=== PATIENT | male | born 1945 | race Two or more races ===

== ENCOUNTER 2017-01-08 07:49 | Inpatient (IN) | payer OTHER ==
--- NOTE | 2017-01-08 07:52 | PDOC ---
History of Present Illness - General Stated Complaint: FEVER Time Seen by Provider: 01/08/17 07:52 History Source: Other (Aide from alf) Exam Limitations: Other (nonverbal at baseline) - History of Present Illness Initial Comments: 71 yo M history MR presents with fever x1 day. He is unable to offer any history , but as per aide at bedside, he has had fever today, appeared weak and not himself. He vomited x1 this morning. Past History - Past Medical History Allergies/Adverse Reactions: Allergies Allergy/AdvReac Type Severity Reaction Status Date / Time No Known Allergies Allergy Verified 01/08/17 07:57 Home Medications: Ambulatory Orders Amlodipine Besylate 5 mg PO DAILY 07/17/16 Ascorbic Acid [Vitamin C] 1,000 mg PO DAILY 07/17/16 Aspirin [Ecotrin] 81 mg PO DAILY 07/17/16 Cholecalciferol (Vitamin D3) [Vitamin D3 -] 1,000 unit PO DAILY 07/17/16 Lisinopril [Prinivil] 20 mg PO DAILY 07/17/16 Multivitamin,Ther and Minerals [Vitamin and Minerals] 1 each PO DAILY 07/17/16 Omeprazole 20 mg PO DAILY 07/17/16 Sennosides [Senna] 2 tab PO HS PRN 07/17/16 Prune Juice 4 oz DAILY 01/08/17 Sodium Fluoride [Denta 5000 Plus] 51 gm DT HS 01/08/17 Cardiac Disorders: Yes GI Disorders: Yes HTN: Yes Seizures: Yes - Immunization History Immunization Up to Date: No - Psycho/Social/Smoking Cessation Hx Anxiety: No Suicidal Ideation: No Smoking Status: No Smoking History: Unknown if ever smoked Have you smoked in the past 12 months: No Number of Cigarettes Smoked Daily: 0 Hx Alcohol Use: No Drug/Substance Use Hx: No Substance Use Type: None Review of Systems - Review of Systems Able to Perform ROS?: No (nonverbal) *Physical Exam - Physical Exam Comments: GENERAL: Awake, alert, in no acute distress HEAD: No signs of trauma EYES: PERRLA, EOMI, sclera anicteric, conjunctiva clear ENT: Auricles normal inspection, hearing grossly normal, nares patent, oropharynx clear without exudates. Dry mucosa NECK: Normal ROM, supple, no lymphadenopathy, JVD, or masses LUNGS: Scattered rhonchi. Good air entry B/L. HEART: Tachycardic with regular rhythm, normal S1 and S2, no murmurs, rubs or gallops ABDOMEN: Soft, normoactive bowel sounds. No guarding, no rebound. No masses EXTREMITIES: Normal range of motion, no edema. No clubbing or cyanosis. No cords , erythema, or tenderness NEUROLOGICAL: CN grossly intact. Moving all extremities, alert. Exam limited by severe MR. SKIN: Warm, Dry, normal turgor, no rashes or lesions noted. Heart Score/ECG Review - ECG Impressions Comment:: EKG read 08:34- Sinus tach 122 bpm, RBBB, inv T V2-3. ED Treatment Course - LABORATORY CBC & Chemistry Diagram: 01/08/17 08:25 01/08/17 08:25 Medical Decision Making - Medical Decision Making Pt unable to offer any history, but found to have fever and tachycardia. Labs sent- found to have hyponatremia, elevated lactate. CXR shows LLL pna. Will send urine antigens for pna, as he has hyponatremia (although this may be chronic), and comes from a facility. Will treat empirically with rocephin and azithro. *DC/Admit/Observation/Transfer Diagnosis at time of Disposition: Hyponatremia Pneumonia Qualifiers: Pneumonia type: due to unspecified organism Laterality: left Lung location: lower lobe of lung Qualified Code(s): J18.1 - Lobar pneumonia, unspecified organism - Discharge Dispostion Condition at time of disposition: Stable Admit: Yes
[2017-01-08 08:07] VITALS: BMI 22.9
[2017-01-08] MEDS ORDERED: SODIUM CHLORIDE 1,000 ML IV STA (08:11)
[2017-01-08] MEDS ORDERED: ACETAMINOPHEN 325 MG TABLET (FP) PO ONE (08:11)
[2017-01-08] MEDS ORDERED: ACETAMINOPHEN 325 MG TABLET (FP) ONE (08:45)
[2017-01-08 09:03] LABS: ALBUMIN 3.7 g/dl (3.5-5.0); ALK PHOS 82 U/L (32-92); ANION GAP 10 (8-16); BILIRUBIN,TOTAL 0.9 mg/dl (0.2-1.0); CALCIUM 8.8 mg/dl (8.4-10.2); CO2 22 mmol/L (22-28); CREATININE 0.7 mg/dl (0.6-1.3); GLUCOSE,RANDOM 150 mg/dl (74-106); SGOT/AST 21 U/L (10-42); SGPT/ALT 14 U/L (10-40); TOT PROT 6.8 g/dl (6.4-8.3)
[2017-01-08 09:04] LABS: PH,URINE 6.5 (4.5-8); URINE APPEARANCE Clear; URINE BILIRUBIN Negative (NEGATIVE); URINE GLUCOSE (UA) Negative (NEGATIVE); URINE KETONE Negative (NEGATIVE); URINE LEUK ESTERASE Negative (NEGATIVE); URINE NITRITE Negative (NEGATIVE); URINE PROTEIN Negative (NEGATIVE); URINE UROBILINOGEN 1.0 E.U/dl (0.2-1.0)
[2017-01-08 09:21] LABS: URINE BLOOD TRACE (NEGATIVE); URINE COLOR YELLOW
[2017-01-08 09:26] LABS: BASOPHIL 0.1 % (0-2.0); EOSINOPHIL 0.1 % (0-4.5); MCH 31.3 pg (25.7-33.7); MCHC 33.3 g/dl (32.0-35.9); MEAN CELL VOLUME 94.1 fl (80-96); MEAN PLT VOLUME 7.9 fl (7.5-11.1); NEUTROPHILS 89.8 % (42.8-82.8); PLATELET COUNT 248 K/MM3 (134-434); RDW 13.2 % (11.9-15.9); WHITE BLOOD COUNT 13.2 K/mm3 (4.0-10.0)
[2017-01-08 10:11] LABS: URINE WBC 0-3 (3-5)
[2017-01-08] MEDS ORDERED: AZITHROMYCIN IVPB 500 MG in DEXTROSE 5%-WATER - 250 ML IVPB ONE (10:13)
[2017-01-08] MEDS ORDERED: CEFTRIAXONE 1 GM in DEXTROSE 5%-WATER - 50 ML IVPB ONE (10:13)
[2017-01-08] MEDS ORDERED: cefTRIAXone SODIUM 1 GM VIAL ONE (10:20)
[2017-01-08] MEDS ORDERED: AZITHROMYCIN 500 MG VIAL IVPB ONE (10:21)
--- NOTE | 2017-01-08 11:26 | EKG ---
Test Reason : Blood Pressure : / mmHG Vent. Rate : 122 BPM Atrial Rate : 122 BPM P-R Int : 154 ms QRS Dur : 128 ms QT Int : 318 ms P-R-T Axes : 061 057 010 degrees QTc Int : 453 ms SINUS TACHYCARDIA POSSIBLE LEFT ATRIAL ENLARGEMENT RIGHT BUNDLE BRANCH BLOCK ST-T wave abnormalities in V3-4, consider ischemia ABNORMAL ECG NO PREVIOUS ECGS AVAILABLE Confirmed by HELEN CASTRO MD ([id number]) on 01/08/2017 11:25:56 AM Referred By: MD MEYERS Confirmed By:HELEN CASTRO MD
[2017-01-08 11:38] LABS: URINE CREATININE 92.8 mg/dL (20-370)
[2017-01-08] MEDS ORDERED: SENNOSIDES 8.6MG TABLET (FP) PO PRN (12:17)
--- NOTE | 2017-01-08 12:17 | HP ---
CHIEF COMPLAINT: fever and malaise PCP: Dr Godwin HISTORY OF PRESENT ILLNESS: patient is a 71-year-old non-verbal male, past medical history of profound mental retardation, diverticulitis, hypertension, hiatal hernia, mitral valve prolapse, and GERD. patient is unable to provide any history. All history and present illness obtained from medical record accompanied with patient. He presents with fever for the past 24 hours and malaise MAXIMUM TEMPERATURE of 101.0 as a result he was referred to the emergency department for further evaluation ER course was notable for: (1) chest x-ray, cardiomegly, left lower infilitrate (2) tmax 100.6 HR 125 (3) WBC 13.2 lactic acid 2.6 Recent Travel: none PAST MEDICAL HISTORY: hypertension, GERD, profound mental retardation, hiatal hernia, mvp PAST SURGICAL HISTORY: none Social History: [facility] Smoking: none Alcohol: none Drugs: none Family History: ]unknown Allergies No Known Allergies Allergy (Verified 01/08/17 07:57) HOME MEDICATIONS: Home Medications Medication Instructions Recorded Amlodipine Besylate 5 mg PO DAILY 07/17/16 Ascorbic Acid [Vitamin C] 1,000 mg PO DAILY 07/17/16 Aspirin [Ecotrin] 81 mg PO DAILY 07/17/16 Cholecalciferol (Vitamin D3) 1,000 unit PO DAILY 07/17/16 [Vitamin D3 -] Lisinopril [Prinivil] 20 mg PO DAILY 07/17/16 Multivitamin,Ther and Minerals 1 each PO DAILY 07/17/16 [Vitamin and Minerals] Omeprazole 20 mg PO DAILY 07/17/16 Sennosides [Senna] 2 tab PO HS PRN 07/17/16 Prune Juice 4 oz DAILY 01/08/17 Sodium Fluoride [Denta 5000 Plus] 51 gm DT HS 01/08/17 REVIEW OF SYSTEMS CONSTITUTIONAL: Present: fever, malaise Absent: chills, diaphoresis, generalized weakness, , loss of appetite, weight change HEENT: Absent: rhinorrhea, nasal congestion, throat pain, throat swelling, difficulty swallowing, mouth swelling, ear pain, eye pain, visual changes CARDIOVASCULAR: Absent: chest pain, syncope, palpitations, irregular heart rate, lightheadedness , peripheral edema RESPIRATORY: Absent: cough, shortness of breath, dyspnea with exertion, orthopnea, wheezing, stridor, hemoptysis GASTROINTESTINAL: Absent: abdominal pain, abdominal distension, nausea, vomiting, diarrhea, constipation, melena, hematochezia GENITOURINARY: Absent: dysuria, frequency, urgency, hesitancy, hematuria, flank pain, genital pain MUSCULOSKELETAL: Absent: myalgia, arthralgia, joint swelling, back pain, neck pain SKIN: Absent: rash, itching, pallor HEMATOLOGIC/IMMUNOLOGIC: Absent: easy bleeding, easy bruising, lymphadenopathy, frequent infections ENDOCRINE: Absent: unexplained weight gain, unexplained weight loss, heat intolerance, cold intolerance NEUROLOGIC: Absent: headache, focal weakness or paresthesias, dizziness, unsteady gait, seizure, mental status changes, bladder or bowel incontinence PSYCHIATRIC: Absent: anxiety, depression, suicidal or homicidal ideation, hallucinations. PHYSICAL EXAMINATION Vital Signs - 24 hr 01/08/17 11:19 Temperature 99 F Pulse Rate [ 99 H Apical] Respiratory 18 Rate Blood Pressure 132/95 [Arm] O2 Sat by Pulse 93 L Oximetry (%) GENERAL: Awake, alert, and in no acute distress HEAD: Normal with no signs of trauma. EYES: Pupils equal, round and reactive to light, extraocular movements intact, sclera anicteric, conjunctiva clear. No lid lag. EARS, NOSE, THROAT: Ears normal, nares patent, oropharynx clear without exudates. Moist mucous membranes. NECK: Normal range of motion, supple without lymphadenopathy, JVD, or masses. LUNGS: Breath sounds equal, crackles to the left lower lobe, clear to apexes, No wheezes. No accessory muscle use. HEART: Regular rate and rhythm, normal S1 and S2, 2/6 systolic murmur, rub or gallop. ABDOMEN: Soft, nontender, not distended, normoactive bowel sounds, no guarding, no rebound, no masses. No hepatomegaly or splenomegaly. MUSCULOSKELETAL: Normal range of motion at all joints. No bony deformities or tenderness. No CVA tenderness. UPPER EXTREMITIES: 2+ pulses, warm, well-perfused. No cyanosis. No clubbing. No peripheral edema. LOWER EXTREMITIES: 2+ pulses, warm, well-perfused. No calf tenderness. No peripheral edema. NEUROLOGICAL: Cranial nerves II-XII intact. Normal speech. Normal gait. PSYCHIATRIC: Cooperative. Good eye contact. Appropriate mood and affect. SKIN: Warm, dry, normal turgor, no rashes or lesions noted, normal capillary refill. ASSESSMENT/PLAN: 1) pulm community acquired pna - chest xray left lower infiltrate - continue zithromax and rocephin - start duobebs q6h standing - keep sp02 above 92%, with supplemental O2 - pending ct of chest ? congestive changes noted on cxr - appreciate pulmonary input 2) card hypertension - continue lisiniopril and amolodipne - B/P at goal cardiomegly & congestive changes noted on xray, pmh has a history of mvp, will order echo to acess LV function 3) GERD - d/c PPI due to hyponatremia start zantac 4) sepsis - likely secondary to PNA - monitor wbc and fever curve - lactic acid slightly elevated repeat lactic acid after NS bolus f/e/n hyponatremia - likely secondary from dehydration, repeat at 1300 - puree diet - replete lytes prn ppx - zantac - lovenox - oob - scd - pt dispo: requires inpatient care Problem List - Problem (1) Hyponatremia Code(s): E87.1 - HYPO-OSMOLALITY AND HYPONATREMIA (2) Pneumonia Code(s): J18.9 - PNEUMONIA, UNSPECIFIED ORGANISM Qualifiers: Pneumonia type: due to unspecified organism Laterality: left Lung location: lower lobe of lung Qualified Code(s): J18.1 - Lobar pneumonia, unspecified organism (3) Hypertension Code(s): I10 - ESSENTIAL (PRIMARY) HYPERTENSION (4) Sepsis Code(s): A41.9 - SEPSIS, UNSPECIFIED ORGANISM Visit type - Emergency Visit Emergency Visit: Yes ED Registration Date: 01/08/17 Care time: The patient presented to the Emergency Department on the above date and was hospitalized for further evaluation of their emergent condition. - New Patient This patient is new to me today: Yes Date on this admission: 01/08/17 - Critical Care Critical Care patient: No
[2017-01-08] MEDS ORDERED: SODIUM CHLORIDE 1,000 ML IV SCH (12:30)
[2017-01-08] MEDS ORDERED: ALBUTEROL SO4 2.5/IPRATROPIUM 0.5 INH SOL 3 ML VIAL.NEB. NEB PRN (12:44)
[2017-01-08 13:29] LABS: ANION GAP 6 (8-16); CALCIUM 8.3 mg/dl (8.4-10.2); CO2 24 mmol/L (22-28); CREATININE 0.6 mg/dl (0.6-1.3); GLUCOSE,RANDOM 123 mg/dl (74-106); MAGNESIUM 1.8 mg/dL (1.8-2.4); PHOSPHOROUS 2.3 mg/dl (2.5-4.6)
--- NOTE | 2017-01-08 18:15 | CON.PULM ---
Consult Consult Specialty:: PULMONARY Referred by:: MARYSOL - History of Present Illness Chief Complaint: nonverbal History of Present Illness: 71 yo M history MR presents with fever x1 day. He is unable to offer any history , but as per aide at bedside, he has had fever today, appeared weak and not himself. He vomited x1 this morning. - History Source History Provided By: Medical Record, Caregiver Limitations to Obtaining History: Clinical Condition - Past Medical History Cardio/Vascular: Yes: HTN Gastrointestinal: Yes: GERD - Alcohol/Substance Use Hx Alcohol Use: No - Smoking History Smoking history: Unknown if ever smoked Have you smoked in the past 12 months: No Aproximately how many cigarettes per day: 0 - Social History Usual Living Arrangement: [facility]isted [facility] History of Recent Travel: No Home Medications - Allergies Allergies/Adverse Reactions: Allergies Allergy/AdvReac Type Severity Reaction Status Date / Time No Known Allergies Allergy Verified 01/08/17 07:57 - Home Medications Home Medications: Ambulatory Orders Amlodipine Besylate 5 mg PO DAILY 07/17/16 Ascorbic Acid [Vitamin C] 1,000 mg PO DAILY 07/17/16 Aspirin [Ecotrin] 81 mg PO DAILY 07/17/16 Cholecalciferol (Vitamin D3) [Vitamin D3 -] 1,000 unit PO DAILY 07/17/16 Lisinopril [Prinivil] 20 mg PO DAILY 07/17/16 Multivitamin,Ther and Minerals [Vitamin and Minerals] 1 each PO DAILY 07/17/16 Omeprazole 20 mg PO DAILY 07/17/16 Sennosides [Senna] 2 tab PO HS PRN 07/17/16 Prune Juice 4 oz DAILY 01/08/17 Sodium Fluoride [Denta 5000 Plus] 51 gm DT HS 01/08/17 Family Disease History - Family Disease History Family History: Unable to Obtain Review of Systems Unable to obtain ROS, reason: UNABLE Physical Exam Vital Sings: Vital Signs Temperature 99.9 F H 01/08/17 12:22 Pulse Rate 111 H 01/08/17 12:22 Respiratory Rate 19 01/08/17 12:22 Blood Pressure 144/98 01/08/17 12:22 O2 Sat by Pulse Oximetry (%) 94 L 01/08/17 12:22 Constitutional: Yes: Calm Eyes: Yes: EOM Intact HENT: Yes: Normocephalic Neck: Yes: Trachea Midline Cardiovascular: Yes: Regular Rate and Rhythm Respiratory: Yes: Rales (LEFT BASE) Gastrointestinal: Yes: Normal Bowel Sounds Edema: No Labs: CBC, BMP 01/08/17 13:00 REST REVIEWED Imaging - Results Chest X-ray: Image Reviewed Cat Scan: Image Reviewed Problem List - Problems (1) Hypertension Code(s): I10 - ESSENTIAL (PRIMARY) HYPERTENSION (2) Hyponatremia Code(s): E87.1 - HYPO-OSMOLALITY AND HYPONATREMIA (3) Pneumonia Code(s): J18.9 - PNEUMONIA, UNSPECIFIED ORGANISM Qualifiers: Pneumonia type: due to unspecified organism Laterality: left Lung location: lower lobe of lung Qualified Code(s): J18.1 - Lobar pneumonia, unspecified organism (4) Mental retardation Code(s): F79 - UNSPECIFIED INTELLECTUAL DISABILITIES Assessment/Plan AGREE WITH O2 SUPPLEMENTATION PANCULTURE IV ABS BRONCHODILATORS NEEDED CORRECT NA DVT/PUD PROPHYLAXSIS WILL FOLLOW THANK YOU Latonia DESOUZA MD
[2017-01-08] MEDS ORDERED: SODIUM FLUORIDE DT SCH (22:00)
[2017-01-09] MEDS ORDERED: PIPERACILLIN/TAZOB 3.375 GM 50 ML IVPB ONE (05:04)
[2017-01-09] MEDS: AZITHROMYCIN IVPB 250 MG in DEXTROSE 5%-WATER - 250 ML IVPB SCH (05:35)
[2017-01-09 08:04] LABS: BASOPHIL 2.1 % (0-2.0); EOSINOPHIL 4.3 % (0-4.5); MCH 31.6 pg (25.7-33.7); MCHC 33.5 g/dl (32.0-35.9); MEAN CELL VOLUME 94.3 fl (80-96); MEAN PLT VOLUME 7.8 fl (7.5-11.1); NEUTROPHILS 71.9 % (42.8-82.8); PLATELET COUNT 244 K/MM3 (134-434); RDW 12.7 % (11.9-15.9); WHITE BLOOD COUNT 10.3 K/mm3 (4.0-10.8)
[2017-01-09] MEDS ORDERED: LOPERAMIDE HCL 2 MG CAPSULE PO PRN (08:23)
[2017-01-09 08:54] LABS: ALBUMIN 3.2 g/dl (3.5-5.0); ALK PHOS 69 U/L (32-92); ANION GAP 8 (8-16); BILIRUBIN,TOTAL 0.7 mg/dl (0.2-1.0); CALCIUM 8.7 mg/dl (8.4-10.2); CO2 24 mmol/L (22-28); CREATININE 0.6 mg/dl (0.6-1.3); GLUCOSE,RANDOM 113 mg/dl (74-106); MAGNESIUM 1.9 mg/dL (1.8-2.4); PHOSPHOROUS 1.9 mg/dl (2.5-4.6); SGOT/AST 23 U/L (10-42); SGPT/ALT 18 U/L (10-40); TOT PROT 6.1 g/dl (6.4-8.3)
--- NOTE | 2017-01-09 09:15 | PN ---
Progress Note (short form) - Note Progress Note: Pulmonary Patient is down for echo. Latonia House MD Problem List - Problems (1) Hypertension Code(s): I10 - ESSENTIAL (PRIMARY) HYPERTENSION (2) Hyponatremia Code(s): E87.1 - HYPO-OSMOLALITY AND HYPONATREMIA (3) Pneumonia Code(s): J18.9 - PNEUMONIA, UNSPECIFIED ORGANISM Qualifiers: Pneumonia type: due to unspecified organism Laterality: left Lung location: lower lobe of lung Qualified Code(s): J18.1 - Lobar pneumonia, unspecified organism (4) Mental retardation Code(s): F79 - UNSPECIFIED INTELLECTUAL DISABILITIES
[2017-01-09] MEDS: LISINOPRIL 20 MG TABLET (FP) PO SCH (10:00)
[2017-01-09] MEDS: ASCORBIC ACID 500 MG TABLET (FP) PO SCH (10:00)
[2017-01-09] MEDS ORDERED: CHOLECALCIFEROL (VITAMIN D3) 400 UNIT TABLET (FP) PO SCH (10:00)
[2017-01-09] MEDS: RANITIDINE HCL 150 MG TABLET (FP) PO SCH (10:00)
[2017-01-09] MEDS: MULTIVITAMINS THER W-MINERALS COMBO TABLET (FP) PO SCH (10:00)
[2017-01-09] MEDS ORDERED: PATIENT'S OWN MEDICATION (NON-FORMULARY) (Multivitamin,Ther And Minerals [Vitamin And Mine PO SCH (10:00)
[2017-01-09] MEDS ORDERED: ASCORBIC ACID 1000 MG PO SCH (10:00)
[2017-01-09] MEDS: cefTRIAXone 1 GM/50 ML BAG (PRE-DOCKED) IVPB SCH (10:00)
[2017-01-09] MEDS: amLODIPine BESYLATE 5 MG TABLET (FP) PO SCH (10:10)
[2017-01-09] MEDS: ENOXAPARIN NA (PORCINE) 40 MG/0.4 ML DISP.SYRIN SQ SCH (10:10)
[2017-01-09] MEDS: ASPIRIN COATED 81 MG TABLET.EC PO SCH (10:10)
[2017-01-09] MEDS: CHOLECALCIFEROL (VITAMIN D3) 1,000 UNIT TABLET (FP) PO SCH (10:15)
[2017-01-09] MEDS: LACTOBACILLUS ACIDOPHILUS 1 EACH TAB (FP) PO SCH (10:35)
--- NOTE | 2017-01-09 10:38 | PN ---
Physical Exam: SUBJECTIVE: Patient seen and examined, patient is nonverbal, appears comfortable OBJECTIVE: patient is a 71-year-old non-verbal male, past medical history of profound mental retardation, diverticulitis, hypertension, hiatal hernia, mitral valve prolapse, and GERD. patient was admitted from the emergency department for sepsis due to PNA Vital Signs Period Temp Pulse Resp BP Sys/Arvizu Pulse Ox Last 24 Hr 99 F-99.9 F 96-111 18-20 122-144/75-98 92-96 GENERAL: The patient is awake, alert, and fully oriented, in no acute distress. HEAD: Normal with no signs of trauma. EYES: PERRL, extraocular movements intact, sclera anicteric, conjunctiva clear. No ptosis. ENT: Ears normal, nares patent, oropharynx clear without exudates, moist mucous membranes. NECK: Trachea midline, full range of motion, supple. LUNGS: Breath sounds equal, clear to auscultation bilaterally, crackles to bilateral bases L>R , no wheezes, , no accessory muscle use. HEART: Regular rate and rhythm, S1, S2 without murmur, rub or gallop. ABDOMEN: Soft, nontender, nondistended, normoactive bowel sounds, no guarding, no rebound, no hepatosplenomegaly, no masses. EXTREMITIES: 2+ pulses, warm, well-perfused, no edema. NEUROLOGICAL: Cranial nerves II through XII grossly intact. Normal speech, gait not observed. PSYCH: Normal mood, normal affect. SKIN: Warm, dry, normal turgor, no rashes or lesions noted Laboratory Results - last 24 hr CBC WBC 10.3 K/mm3 (4.0-10.8) D 01/09/17 07:43 RBC 4.40 M/mm3 (4.00-5.60) 01/09/17 07:43 Hgb 13.9 GM/dl (11.7-16.9) 01/09/17 07:43 Hct 41.5 % (35.4-49) 01/09/17 07:43 MCV 94.3 fl (80-96) 01/09/17 07:43 MCHC 33.5 g/dl (32.0-35.9) 01/09/17 07:43 RDW 12.7 % (11.9-15.9) 01/09/17 07:43 Plt Count 244 K/MM3 (134-434) 01/09/17 07:43 MPV 7.8 fl (7.5-11.1) 01/09/17 07:43 Neutrophils % 71.9 % (42.8-82.8) D 01/09/17 07:43 Lymphocytes % 17.0 % (8-40) D 01/09/17 07:43 Monocytes % 4.7 % (3.8-10.2) 01/09/17 07:43 Eosinophils % 4.3 % (0-4.5) 01/09/17 07:43 Basophils % 2.1 % (0-2.0) H D 01/09/17 07:43 CMP Sodium 137 mmol/L (136-145) 01/09/17 07:43 Potassium 3.9 mmol/L (3.5-5.1) 01/09/17 07:43 Chloride 105 mmol/L (98-107) 01/09/17 07:43 Carbon Dioxide 24 mmol/L (22-28) 01/09/17 07:43 Anion Gap 8 (8-16) 01/09/17 07:43 BUN 13 mg/dl (7-18) 01/09/17 07:43 Creatinine 0.6 mg/dl (0.6-1.3) 01/09/17 07:43 Creat Clearance w eGFR > 60 (>60) 01/09/17 07:43 Random Glucose 113 mg/dl (74-106) H 01/09/17 07:43 Lactic Acid 1.3 mmol/L (0.4-2.0) 01/09/17 07:43 Calcium 8.7 mg/dl (8.4-10.2) 01/09/17 07:43 Phosphorus 1.9 mg/dl (2.5-4.6) L 01/09/17 07:43 Magnesium 1.9 mg/dL (1.8-2.4) 01/09/17 07:43 Total Bilirubin 0.7 mg/dl (0.2-1.0) D 01/09/17 07:43 AST 23 U/L (10-42) 01/09/17 07:43 ALT 18 U/L (10-40) D 01/09/17 07:43 Alkaline Phosphatase 69 U/L (32-92) 01/09/17 07:43 Total Protein 6.1 g/dl (6.4-8.3) L 01/09/17 07:43 Albumin 3.2 g/dl (3.5-5.0) L 01/09/17 07:43 Active Medications Generic Name Dose Route Start Last Admin Trade Name Freq PRN Reason Stop Dose Admin Albuterol/Ipratropium 1 amp 01/09/17 10:45 Duoneb - NEB Q6H [facility] Amlodipine Besylate 5 mg 01/09/17 10:00 Norvasc - PO DAILY [facility] Ascorbic Acid 1,000 mg 01/09/17 10:00 Vitamin C - PO DAILY [facility] Aspirin 81 mg 01/09/17 10:00 Ecotrin - PO DAILY [facility] Ceftriaxone Sodium 1 gm 01/09/17 10:00 Rocephin 1gm Ivpb (Pre-Docked) IVPB DAILY [facility] Protocol Cholecalciferol 1,000 unit 01/09/17 10:00 Vitamin D3 - PO DAILY [facility] Enoxaparin Sodium 40 mg 01/09/17 10:00 Lovenox - SQ DAILY [facility] Azithromycin 250 mg/ Dextrose 250 mls @ 250 mls/hr 01/09/17 06:00 01/09/17 05: 35 IVPB 01/13/17 06:00 250 mls/hr DAILY@0600 [facility] Administration Lactobacillus Acidophilus 1 tab 01/09/17 10:45 Bacid - PO DAILY [facility] Lisinopril 20 mg 01/09/17 10:00 Prinivil PO DAILY [facility] Loperamide HCl 2 mg 01/09/17 08:23 Imodium - PO Q8H PRN DIARRHEA Multivitamins/Minerals 1 each 01/09/17 10:00 Theragran-M PO DAILY [facility] Non-Formulary Medication 51 gm 01/08/17 22:00 Sodium Fluoride [Denta 5000 Plus] DT HS [facility] Ranitidine HCl 150 mg 01/09/17 10:00 Zantac - PO DAILY [facility] Senna 2 tab 01/08/17 12:17 Senna - PO HS PRN CONSTIPATION Microbiology 01/08/17 08:55 Urine - Urine Clean Catch Urine Culture - Final NO GROWTH OBTAINED 01/08/17 08:30 Blood - Peripheral Venous Blood Culture - Preliminary NO GROWTH OBTAINED AFTER 24 HOURS, INCUBATION TO CONTINUE FOR 4 DAYS. 01/08/17 08:25 Blood - Peripheral Venous Blood Culture - Preliminary NO GROWTH OBTAINED AFTER 24 HOURS, INCUBATION TO CONTINUE FOR 4 DAYS. 01/08/17 10:34 Urine For Antigen Detection Legionella Antigen - Final, negative 01/08/17 10:34 Urine For Antigen Detection Streptococcus pneumoniae Antigen (M - Final, negative ASSESSMENT/PLAN: 1) pulm community acquired pna - chest xray left lower infiltrate-->ct of chest-left lower infilitrate, fluid distenstion in esophagus - continue zithromax and rocephin - continue duonebs q6h standing - keep sp02 above 92%, with supplemental O2 - pulmonary consulted and following input 2) card hypertension - continue lisiniopril and amolodipne - B/P at goal - echo lv wnl, no pericardial effusion 3) GERD - continue zantac 4) sepsis - likely secondary to PNA - leukocytosis trending downward, low grade temp noted - lactic acid wnll f/e/n hyponatremia - serum sodium trending upward after iv hydration l - puree diet--> appreciate speech and swallow eval, large hiatal hernia noted ct scan w/fluid distention in the esophagus, ? aspiration -replete phos ppx - zantac - lovenox - oob - scd - pt dispo: requires inpatient care Problem List - Problems (1) Hyponatremia Code(s): E87.1 - HYPO-OSMOLALITY AND HYPONATREMIA (2) Pneumonia Code(s): J18.9 - PNEUMONIA, UNSPECIFIED ORGANISM Qualifiers: Pneumonia type: due to unspecified organism Laterality: left Lung location: lower lobe of lung Qualified Code(s): J18.1 - Lobar pneumonia, unspecified organism (3) Hypertension Code(s): I10 - ESSENTIAL (PRIMARY) HYPERTENSION (4) Sepsis Code(s): A41.9 - SEPSIS, UNSPECIFIED ORGANISM Visit type - Emergency Visit Emergency Visit: Yes ED Registration Date: 01/08/17 Care time: The patient presented to the Emergency Department on the above date and was hospitalized for further evaluation of their emergent condition. - New Patient This patient is new to me today: No - Critical Care Critical Care patient: No - Discharge Referral Referred to [facility] No
[2017-01-09] MEDS: ALBUTEROL SO4 2.5/IPRATROPIUM 0.5 INH SOL 3 ML VIAL.NEB. NEB SCH ×2 (10:58→19:17)
[2017-01-09] MEDS ORDERED: SODIUM PHOSPHATE - 21 MM in SODIUM CHLORIDE 250 ML IVPB ONE (11:00)
--- NOTE | 2017-01-09 13:26 | CONSULT ---
Admitting History and Physical - Primary Care Physician PCP: Dayanna Lazaro - Admission History of Present Illness: Per EMR: HISTORY OF PRESENT ILLNESS: patient is a 71-year-old non-verbal male, past medical history of profound mental retardation, diverticulitis, hypertension, hiatal hernia, mitral valve prolapse, and GERD. patient is unable to provide any history. All history and present illness obtained from medical record accompanied with patient. He presents with fever for the past 24 hours and malaise MAXIMUM TEMPERATURE of 101.0 as a result he was referred to the emergency department for further evaluation ER course was notable for: (1) chest x-ray, cardiomegly, left lower infilitrate (2) tmax 100.6 HR 125 (3) WBC 13.2 lactic acid 2.6" Vomited once yesterday. On puree/thin liquid. Selected Entries 01/08/17 01/08/17 01/08/17 07:57 11:19 12:00 Breakfast Supper Temperature 100.6 F H 99 F 99.9 F H 01/08/17 01/08/17 01/08/17 12:22 19:33 22:53 Breakfast Supper 100% Temperature 99.9 F H 99.9 F H 01/09/17 01/09/17 01/09/17 05:47 09:00 10:50 Breakfast 100% 100% Supper Temperature 99.1 F History Source: Medical Record, Caregiver Limitations to Obtaining History: Clinical Condition, Poor Historian - Past Medical History Cardiovascular: Yes: HTN Gastrointestinal: Yes: GERD - Smoking History Smoking history: Unknown if ever smoked Have you smoked in the past 12 months: No Aproximately how many cigarettes per day: 0 - Alcohol/Substance Use Hx Alcohol Use: No - Social History History of Recent Travel: No History - Admission Reason For Visit: PNUEMONIA/HYPONATREMIA - Diagnostics X-ray: Report Reviewed - General Mental Status: Awake and Alert Attention: Distractible Ability to Follow Directions: Fair Head/Neck Control: Fair - Hearing Hearing: Functional Hearing Aide: No Speech Evaluation - Communication Primary Language: CROATIAN Oral Expression Ability: Yes: Non-Verbal - Speech Production Able to Make Needs Known: Yes: Severely Impaired Intelligibility: Yes: Severely Impaired - Language/Auditory Comprehension Observation: Able to respond to yes/no queries: No, Comprehends Conversational Speech: No (simple directives) - Language/Verbal Expression Able to Respond to Simple Queries: Yes: Severely Impaired Able to Communicate Wants and Needs: Yes: Severely Impaired Functional Communication Status: Yes: Severely Impaired - Swallow Evaluation/Bedside Assessment Current Nutritional Intake: Dysphagia Pureed, Thin Liquids Oral Secretions: Yes: WFL Dentition: Yes: Missing Teeth Facial Symmetry at Rest: Symmetrical Laryngeal Movement: Labored,delay initiation Rate of Intake: Impulsive Bolus Size: Large Labial Seal: WFL Oral Prep Time: WFL A-P Transit: WFL Pocketing: None Timing of Swallow: Delayed Coughing/Throat Clear: No Change in Voice: No Recommendations - Speech Evaluation, Impression/Plan Impression: Non verbal, comprehends simple directives. Impulsive self feeding with delayed swallow onset. Swallowing fairly functional - Dysphagia Impressions/Plan Dysphagia Impressions: Risk of Aspiration *Silent aspiration: cannot be R/O at bedside - Recommendations Diet Consistency: Dysphagia Pureed Liquids: Thin Liquids, Other ( if recurrent PNA/bronchitis, MBS can be done as out pt to r/o silent aspiration)
[2017-01-10] MEDS: ALBUTEROL SO4 2.5/IPRATROPIUM 0.5 INH SOL 3 ML VIAL.NEB. NEB SCH ×4 (00:42→18:51)
[2017-01-10] MEDS: AZITHROMYCIN IVPB 250 MG in DEXTROSE 5%-WATER - 250 ML IVPB SCH (06:42)
[2017-01-10] MEDS: cefTRIAXone 1 GM/50 ML BAG (PRE-DOCKED) IVPB SCH (09:00)
[2017-01-10] MEDS: LACTOBACILLUS ACIDOPHILUS 1 EACH TAB (FP) PO SCH (10:00)
[2017-01-10] MEDS: RANITIDINE HCL 150 MG TABLET (FP) PO SCH (10:00)
--- NOTE | 2017-01-10 10:06 | PN ---
Physical Exam: SUBJECTIVE: Patient seen and examined OBJECTIVE: Vital Signs Period Temp Pulse Resp BP Sys/Arvizu Pulse Ox Last 24 Hr 97.6 F-99.3 F 88-98 18-20 139-164/60-91 95-99 GENERAL: The patient is awake, alert, and fully oriented, in no acute distress. HEAD: Normal with no signs of trauma. EYES: PERRL, extraocular movements intact, sclera anicteric, conjunctiva clear. No ptosis. ENT: Ears normal, nares patent, oropharynx clear without exudates, moist mucous membranes. NECK: Trachea midline, full range of motion, supple. LUNGS: Breath sounds equal, clear to auscultation bilaterally, no wheezes, no crackles, no accessory muscle use. HEART: Regular rate and rhythm, S1, S2 without murmur, rub or gallop. ABDOMEN: Soft, nontender, nondistended, normoactive bowel sounds, no guarding, no rebound, no hepatosplenomegaly, no masses. EXTREMITIES: 2+ pulses, warm, well-perfused, no edema. NEUROLOGICAL: Cranial nerves II through XII grossly intact. Normal speech, gait not observed. PSYCH: Normal mood, normal affect. SKIN: Warm, dry, normal turgor, no rashes or lesions noted Laboratory Results - last 24 hr 01/09/17 07:43 Lactic Acid 1.3 Active Medications Generic Name Dose Route Start Last Admin Trade Name Freq PRN Reason Stop Dose Admin Albuterol/Ipratropium 1 amp 01/09/17 10:45 01/10/17 06:42 Duoneb - NEB Not Given QIDR BOB Amlodipine Besylate 5 mg 01/09/17 10:00 01/09/17 10:10 Norvasc - PO 5 mg DAILY BOB Administration Ascorbic Acid 1,000 mg 01/09/17 10:00 01/09/17 10:00 Vitamin C - PO 1,000 mg DAILY BOB Administration Aspirin 81 mg 01/09/17 10:00 01/09/17 10:10 Ecotrin - PO 81 mg DAILY BOB Administration Ceftriaxone Sodium 1 gm 01/09/17 10:00 01/09/17 10:00 Rocephin 1gm Ivpb (Pre-Docked) IVPB 1 gm DAILY BOB Administration Protocol Cholecalciferol 1,000 unit 01/09/17 10:00 01/09/17 10:15 Vitamin D3 - PO 1,000 unit DAILY BOB Administration Enoxaparin Sodium 40 mg 01/09/17 10:00 01/09/17 10:10 Lovenox - SQ 40 mg DAILY BOB Administration Azithromycin 250 mg/ Dextrose 250 mls @ 250 mls/hr 01/09/17 06:00 01/10/17 06: 42 IVPB 01/13/17 06:00 250 mls/hr DAILY@0600 BOB Administration Lactobacillus Acidophilus 1 tab 01/09/17 10:45 01/09/17 10:35 Bacid - PO 1 tab DAILY BOB Administration Lisinopril 20 mg 01/09/17 10:00 01/09/17 10:00 Prinivil PO 20 mg DAILY BOB Administration Loperamide HCl 2 mg 01/09/17 08:23 Imodium - PO Q8H PRN DIARRHE[facility] Multivitamins/Minerals 1 each 01/09/17 10:00 01/09/17 10:00 Theragran-M PO 1 each DAILY [facility] Administration Non-Formulary Medication 51 gm 01/08/17 22:00 Sodium Fluoride [Denta 5000 Plus] DT HS B[facility] Ranitidine HCl 150 mg 01/09/17 10:00 01/09/17 10:00 Zantac - PO 150 mg DAILY [facility]OB Administration Senna 2 tab 01/08/17 12:17 Senna - PO HS PRN CONSTIPATION ASSESSMENT/PLAN: Problem List - Problems (1) Hyponatremia Code(s): E87.1 - HYPO-OSMOLALITY AND HYPONATREMIA (2) Pneumonia Code(s): J18.9 - PNEUMONIA, UNSPECIFIED ORGANISM Qualifiers: Pneumonia type: due to unspecified organism Laterality: left Lung location: lower lobe of lung Qualified Code(s): J18.1 - Lobar pneumonia, unspecified organism (3) Hypertension Code(s): I10 - ESSENTIAL (PRIMARY) HYPERTENSION (4) Sepsis Code(s): A41.9 - SEPSIS, UNSPECIFIED ORGANISM
[2017-01-10] MEDS: ASPIRIN COATED 81 MG TABLET.EC PO SCH (10:09)
[2017-01-10] MEDS: LISINOPRIL 20 MG TABLET (FP) PO SCH (10:10)
[2017-01-10] MEDS: amLODIPine BESYLATE 5 MG TABLET (FP) PO SCH (10:10)
[2017-01-10] MEDS: MULTIVITAMINS THER W-MINERALS COMBO TABLET (FP) PO SCH (10:11)
[2017-01-10] MEDS: ASCORBIC ACID 500 MG TABLET (FP) PO SCH (10:11)
[2017-01-10] MEDS: CHOLECALCIFEROL (VITAMIN D3) 1,000 UNIT TABLET (FP) PO SCH (10:12)
[2017-01-10] MEDS: ENOXAPARIN NA (PORCINE) 40 MG/0.4 ML DISP.SYRIN SQ SCH (10:16)
--- NOTE | 2017-01-10 10:29 | PN ---
Progress Note, Physician History of Present Illness: PULMONARY AWAKE,NAD,-DYSPNEA,-TACHYPNEA - Current Medication List Current Medications: Active Medications Albuterol/Ipratropium (Duoneb -) 1 amp NEB QIDR [facility] Last Admin: 01/10/17 06:42 Dose: Not Given Amlodipine Besylate (Norvasc -) 5 mg PO DAILY [facility] Last Admin: 01/09/17 10:10 Dose: 5 mg Ascorbic Acid (Vitamin C -) 1,000 mg PO DAILY [facility] Last Admin: 01/09/17 10:00 Dose: 1,000 mg Aspirin (Ecotrin -) 81 mg PO DAILY [facility] Last Admin: 01/09/17 10:10 Dose: 81 mg Ceftriaxone Sodium (Rocephin 1gm Ivpb (Pre-Docked)) 1 gm IVPB DAILY [facility] PRN Reason: Protocol Last Admin: 01/09/17 10:00 Dose: 1 gm Cholecalciferol (Vitamin D3 -) 1,000 unit PO DAILY [facility] Last Admin: 01/09/17 10:15 Dose: 1,000 unit Enoxaparin Sodium (Lovenox -) 40 mg SQ DAILY [facility] Last Admin: 01/09/17 10:10 Dose: 40 mg Azithromycin 250 mg/ Dextrose 250 mls @ 250 mls/hr IVPB DAILY@0600 [facility] Stop: 01/13/17 06:00 Last Admin: 01/10/17 06:42 Dose: 250 mls/hr Lactobacillus Acidophilus (Bacid -) 1 tab PO DAILY [facility] Last Admin: 01/09/17 10:35 Dose: 1 tab Lisinopril (Prinivil) 20 mg PO DAILY [facility] Last Admin: 01/09/17 10:00 Dose: 20 mg Loperamide HCl (Imodium -) 2 mg PO Q8H PRN PRN Reason: DIARRHEA Multivitamins/Minerals (Theragran-M) 1 each PO DAILY [facility] Last Admin: 01/09/17 10:00 Dose: 1 each Non-Formulary Medication (Sodium Fluoride [Denta 5000 Plus]) 51 gm DT HS [facility] Ranitidine HCl (Zantac -) 150 mg PO DAILY [facility] Last Admin: 01/09/17 10:00 Dose: 150 mg Senna (Senna -) 2 tab PO HS PRN PRN Reason: CONSTIPATION - Objective Vital Signs: Vital Signs Temperature 97.6 F 01/10/17 03:00 Pulse Rate 88 01/10/17 03:00 Respiratory Rate 18 01/10/17 03:00 Blood Pressure 149/91 01/10/17 03:00 O2 Sat by Pulse Oximetry (%) 99 01/10/17 05:38 Constitutional: Yes: Well Nourished, Calm Eyes: Yes: WNL HENT: Yes: WNL Neck: Yes: WNL Cardiovascular: Yes: Regular Rate and Rhythm, S1, S2 Respiratory: Yes: Rales (SCATTERED RHONCHI), Rhonchi Gastrointestinal: Yes: Normal Bowel Sounds, Soft Extremities: Yes: WNL Edema: No - ....Imaging Cat Scan: Report Reviewed, Image Reviewed Assessment/Plan Problem List - Problems (1) Hypertension Code(s): I10 - ESSENTIAL (PRIMARY) HYPERTENSION (2) Hyponatremia Code(s): E87.1 - HYPO-OSMOLALITY AND HYPONATREMIA CORRECTED (3) Pneumonia Code(s): J18.9 - PNEUMONIA, UNSPECIFIED ORGANISM Qualifiers: Pneumonia type: due to unspecified organism Laterality: left Lung location: lower lobe of lung Qualified Code(s): J18.1 - Lobar pneumonia, unspecified organism (4) Mental retardation Code(s): F79 - UNSPECIFIED INTELLECTUAL DISABILITIES Assessment/Plan O2 IV ABS BRONCHODILATORS DVT/PUD PROPHYLAXSIS DR GALEANA
[2017-01-10 10:30] LABS: ALBUMIN 3.5 g/dl (3.5-5.0); ALK PHOS 71 U/L (32-92); ANION GAP 9 (8-16); BILIRUBIN,TOTAL 0.6 mg/dl (0.2-1.0); CALCIUM 8.9 mg/dl (8.4-10.2); CO2 24 mmol/L (22-28); CREATININE 0.6 mg/dl (0.6-1.3); GLUCOSE,RANDOM 131 mg/dl (74-106); PHOSPHOROUS 2.6 mg/dl (2.5-4.6); SGOT/AST 33 U/L (10-42); SGPT/ALT 19 U/L (10-40); TOT PROT 6.6 g/dl (6.4-8.3)
[2017-01-10 10:46] LABS: MCH 31.3 pg (25.7-33.7); MCHC 33.1 g/dl (32.0-35.9); MEAN CELL VOLUME 94.4 fl (80-96); MEAN PLT VOLUME 8.7 fl (7.5-11.1); PLATELET COUNT 217 K/MM3 (134-434); RDW 12.8 % (11.9-15.9); WHITE BLOOD COUNT 7.2 K/mm3 (4.0-10.8)
--- NOTE | 2017-01-10 14:01 | PN ---
Physical Exam: SUBJECTIVE: Patient seen and examined, patient is non-verbal, pt appears comfortable. OBJECTIVE: patient is a 71-year-old non-verbal male, past medical history of profound mental retardation, diverticulitis, hypertension, hiatal hernia, mitral valve prolapse, and GERD. patient was admitted from the emergency department for sepsis due to PNA Vital Signs Period Temp Pulse Resp BP Sys/Arvizu Pulse Ox Last 24 Hr 97.6 F-99.3 F 88-98 18-20 139-164/60-91 95-99 GENERAL: The patient is awake, alert, and fully oriented, in no acute distress. HEAD: Normal with no signs of trauma. EYES: PERRL, extraocular movements intact, sclera anicteric, conjunctiva clear. No ptosis. ENT: Ears normal, nares patent, oropharynx clear without exudates, moist mucous membranes. NECK: Trachea midline, full range of motion, supple. LUNGS: Breath sounds equal, clear to auscultation bilaterally, crackles to bilateral bases L>R , no wheezes, , no accessory muscle use. HEART: Regular rate and rhythm, S1, S2 without murmur, rub or gallop. ABDOMEN: Soft, nontender, nondistended, normoactive bowel sounds, no guarding, no rebound, no hepatosplenomegaly, no masses. EXTREMITIES: 2+ pulses, warm, well-perfused, no edema. NEUROLOGICAL: Cranial nerves II through XII grossly intact. Normal speech, gait not observed. PSYCH: Normal mood, normal affect. SKIN: Warm, dry, normal turgor, no rashes or lesions noted Laboratory Results - last 24 hr 01/10/17 01/10/17 09:00 09:00 WBC 7.2 D RBC 4.54 Hgb 14.2 Hct 42.9 MCV 94.4 MCHC 33.1 RDW 12.8 Plt Count 217 MPV 8.7 D Neutrophils % Y Lymphocytes % Y Sodium 132 L Potassium 4.5 Chloride 99 Carbon Dioxide 24 Anion Gap 9 BUN 6 L D Creatinine 0.6 Creat Clearance w eGFR > 60 Random Glucose 131 H Calcium 8.9 Phosphorus 2.6 D Magnesium 2.0 Total Bilirubin 0.6 AST 33 D ALT 19 Alkaline Phosphatase 71 Total Protein 6.6 Albumin 3.5 Active Medications Generic Name Dose Route Start Last Admin Trade Name Freq PRN Reason Stop Dose Admin Albuterol/Ipratropium 1 amp 01/09/17 10:45 01/10/17 11:41 Duoneb - NEB 1 amp QIDR BOB Administration Amlodipine Besylate 5 mg 01/09/17 10:00 01/10/17 10:10 Norvasc - PO 5 mg DAILY BOB Administration Ascorbic Acid 1,000 mg 01/09/17 10:00 01/10/17 10:11 Vitamin C - PO 1,000 mg DAILY BOB Administration Aspirin 81 mg 01/09/17 10:00 01/10/17 10:09 Ecotrin - PO 81 mg DAILY BOB Administration Ceftriaxone Sodium 1 gm 01/09/17 10:00 01/10/17 09:00 Rocephin 1gm Ivpb (Pre-Docked) IVPB 1 gm DAILY BOB Administration Protocol Cholecalciferol 1,000 unit 01/09/17 10:00 01/10/17 10:12 Vitamin D3 - PO 1,000 unit DAILY BOB Administration Enoxaparin Sodium 40 mg 01/09/17 10:00 01/09/17 10:10 Lovenox - SQ 40 mg DAILY BOB Administration Azithromycin 250 mg/ Dextrose 250 mls @ 250 mls/hr 01/09/17 06:00 01/10/17 06: 42 IVPB 01/13/17 06:00 250 mls/hr DAILY@0600 BOB Administration Lactobacillus Acidophilus 1 tab 01/09/17 10:45 01/10/17 10:00 Bacid - PO 1 tab DAILY BOB Administration Lisinopril 20 mg 01/09/17 10:00 01/10/17 10:10 Prinivil PO 20 mg DAILY BOB Administration Loperamide HCl 2 mg 01/09/17 08:23 Imodium - PO Q8H PRN DIARRHEA Multivitamins/Minerals 1 each 01/09/17 10:00 01/10/17 10:11 Theragran-M PO 1 each DAILY [facility] Administration Non-Formulary Medication 51 gm 01/08/17 22:00 Sodium Fluoride [Denta 5000 Plus] DT HS [facility] Ranitidine HCl 150 mg 01/09/17 10:00 01/10/17 10:00 Zantac - PO 150 mg DAILY BOB Administration Senna 2 tab 01/08/17 12:17 Senna - PO HS PRN CONSTIPATION ASSESSMENT/PLAN: 1) pulm community acquired pna - chest xray left lower infiltrate-->ct of chest-left lower infilitrate, fluid distenstion in esophagus - continue zithromax and rocephin - continue duonebs q6h standing - keep sp02 above 92%, with supplemental O2 - pulmonary consulted and following input 2) card hypertension - continue lisiniopril and amolodipne - B/P at goal - echo lv wnl, no pericardial effusion 3) GERD - continue zantac 4) sepsis - likely secondary to PNA - leukocytosis WNL, low grade temp noted - lactic acid wnll f/e/n hyponatremia - serum sodium trending upward after iv hydration l - puree diet - pt was evaluated by speech and swallow, recommend puree diet with thin liquids. ppx - zantac - lovenox - oob - scd - pt dispo: requires inpatient care Problem List - Problems (1) Hyponatremia Code(s): E87.1 - HYPO-OSMOLALITY AND HYPONATREMIA (2) Pneumonia Code(s): J18.9 - PNEUMONIA, UNSPECIFIED ORGANISM Qualifiers: Pneumonia type: due to unspecified organism Laterality: left Lung location: lower lobe of lung Qualified Code(s): J18.1 - Lobar pneumonia, unspecified organism (3) Hypertension Code(s): I10 - ESSENTIAL (PRIMARY) HYPERTENSION (4) Sepsis Code(s): A41.9 - SEPSIS, UNSPECIFIED ORGANISM Visit type - Emergency Visit Emergency Visit: Yes ED Registration Date: 01/08/17 Care time: The patient presented to the Emergency Department on the above date and was hospitalized for further evaluation of their emergent condition. - New Patient This patient is new to me today: No - Critical Care Critical Care patient: No - Discharge Referral Referred to [facility] No
[2017-01-10 14:38] LABS: PLATELET ESTIMATE ADEQUATE (NORMAL)
[2017-01-11] MEDS: AZITHROMYCIN IVPB 250 MG in DEXTROSE 5%-WATER - 250 ML IVPB SCH (05:26)
[2017-01-11 06:04] VITALS: BP 143/80; PULSE 78; TEMP 98.5
[2017-01-11] MEDS: ALBUTEROL SO4 2.5/IPRATROPIUM 0.5 INH SOL 3 ML VIAL.NEB. NEB SCH ×3 (06:17→11:38)
--- NOTE | 2017-01-11 07:36 | PN ---
Progress Note, Physician History of Present Illness: pulmonary alert,non-verbal,-resp distress - Current Medication List Current Medications: Active Medications Albuterol/Ipratropium (Duoneb -) 1 amp NEB QIDR [facility] Last Admin: 01/11/17 06:17 Dose: 1 amp Amlodipine Besylate (Norvasc -) 5 mg PO DAILY [facility] Last Admin: 01/10/17 10:10 Dose: 5 mg Ascorbic Acid (Vitamin C -) 1,000 mg PO DAILY [facility] Last Admin: 01/10/17 10:11 Dose: 1,000 mg Aspirin (Ecotrin -) 81 mg PO DAILY [facility] Last Admin: 01/10/17 10:09 Dose: 81 mg Ceftriaxone Sodium (Rocephin 1gm Ivpb (Pre-Docked)) 1 gm IVPB DAILY [facility] PRN Reason: Protocol Last Admin: 01/10/17 09:00 Dose: 1 gm Cholecalciferol (Vitamin D3 -) 1,000 unit PO DAILY [facility] Last Admin: 01/10/17 10:12 Dose: 1,000 unit Enoxaparin Sodium (Lovenox -) 40 mg SQ DAILY [facility] Last Admin: 01/10/17 10:16 Dose: 40 mg Azithromycin 250 mg/ Dextrose 250 mls @ 250 mls/hr IVPB DAILY@0600 [facility] Stop: 01/13/17 06:00 Last Admin: 01/11/17 05:26 Dose: 250 mls/hr Lactobacillus Acidophilus (Bacid -) 1 tab PO DAILY [facility] Last Admin: 01/10/17 10:00 Dose: 1 tab Lisinopril (Prinivil) 20 mg PO DAILY [facility] Last Admin: 01/10/17 10:10 Dose: 20 mg Loperamide HCl (Imodium -) 2 mg PO Q8H PRN PRN Reason: DIARRHEA Multivitamins/Minerals (Theragran-M) 1 each PO DAILY [facility] Last Admin: 01/10/17 10:11 Dose: 1 each Non-Formulary Medication (Sodium Fluoride [Denta 5000 Plus]) 51 gm DT HS [facility] Ranitidine HCl (Zantac -) 150 mg PO DAILY [facility] Last Admin: 01/10/17 10:00 Dose: 150 mg Senna (Senna -) 2 tab PO HS PRN PRN Reason: CONSTIPATION - Objective Vital Signs: Vital Signs Temperature 98.5 F 01/11/17 06:00 Pulse Rate 78 06/22/17 06:00 Respiratory Rate 18 01/11/17 06:00 Blood Pressure 143/80 01/11/17 06:00 O2 Sat by Pulse Oximetry (%) 95 01/11/17 06:02 Constitutional: Yes: Well Nourished, Calm Eyes: Yes: WNL HENT: Yes: WNL Neck: Yes: WNL Cardiovascular: Yes: Regular Rate and Rhythm, S1, S2 Respiratory: Yes: Diminished Gastrointestinal: Yes: Normal Bowel Sounds, Soft Extremities: Yes: WNL Edema: No Labs: CBC, BMP Assessment/Plan Problem List - Problems (1) Hypertension Code(s): I10 - ESSENTIAL (PRIMARY) HYPERTENSION (2) Hyponatremia Code(s): E87.1 - HYPO-OSMOLALITY AND HYPONATREMIA CORRECTED (3) Pneumonia Code(s): J18.9 - PNEUMONIA, UNSPECIFIED ORGANISM Qualifiers: Pneumonia type: due to unspecified organism Laterality: left Lung location: lower lobe of lung Qualified Code(s): J18.1 - Lobar pneumonia, unspecified organism (4) Mental retardation Code(s): F79 - UNSPECIFIED INTELLECTUAL DISABILITIES Assessment/Plan O2 PRN ABX BRONCHODILATORS DVT/PUD PROPHYLAXSIS DR GALEANA
[2017-01-11] MEDS: ASCORBIC ACID 500 MG TABLET (FP) PO SCH (09:42)
[2017-01-11] MEDS: RANITIDINE HCL 150 MG TABLET (FP) PO SCH (09:42)
[2017-01-11] MEDS: LACTOBACILLUS ACIDOPHILUS 1 EACH TAB (FP) PO SCH (09:42)
[2017-01-11] MEDS: MULTIVITAMINS THER W-MINERALS COMBO TABLET (FP) PO SCH (09:42)
[2017-01-11] MEDS: CHOLECALCIFEROL (VITAMIN D3) 1,000 UNIT TABLET (FP) PO SCH (09:42)
[2017-01-11] MEDS: amLODIPine BESYLATE 5 MG TABLET (FP) PO SCH (09:42)
[2017-01-11] MEDS: cefTRIAXone 1 GM/50 ML BAG (PRE-DOCKED) IVPB SCH (09:42)
[2017-01-11] MEDS: ENOXAPARIN NA (PORCINE) 40 MG/0.4 ML DISP.SYRIN SQ SCH (09:42)
[2017-01-11] MEDS: LISINOPRIL 20 MG TABLET (FP) PO SCH (09:42)
[2017-01-11] MEDS: ASPIRIN COATED 81 MG TABLET.EC PO SCH (09:42)
--- NOTE | 2017-01-11 12:34 | DS ---
Physical Exam: SUBJECTIVE: Patient seen and examined OBJECTIVE: Vital Signs Period Temp Pulse Resp BP Sys/Arvizu Pulse Ox Last 24 Hr 98.2 F-98.7 F 76-79 18-18 140-145/78-80 95-99 PHYSICAL EXAM GENERAL: The patient is awake, alert, and fully oriented, in no acute distress. HEAD: Normal with no signs of trauma. EYES: PERRL, extraocular movements intact, sclera anicteric, conjunctiva clear. ENT: Ears normal, nares patent, oropharynx clear without exudates, moist mucous membranes. NECK: Trachea midline, full range of motion, supple. LUNGS: Breath sounds equal, clear to auscultation bilaterally, no wheezes, no crackles, no accessory muscle use. HEART: Regular rate and rhythm, S1, S2 without murmur, rub or gallop. ABDOMEN: Soft, nontender, nondistended, normoactive bowel sounds, no guarding, no rebound, no hepatosplenomegaly, no masses. EXTREMITIES: 2+ pulses, warm, well-perfused, no edema. NEUROLOGICAL: Cranial nerves II through XII grossly intact. Normal speech, gait not observed. PSYCH: Normal mood, normal affect. SKIN: Warm, dry, normal turgor, no rashes or lesions noted. LABS Laboratory Results - last 24 hr 01/10/17 09:00 WBC 7.2 D RBC 4.54 Hgb 14.2 Hct 42.9 MCV 94.4 MCHC 33.1 RDW 12.8 Plt Count 217 MPV 8.7 D Neutrophils % 74.0 Lymphocytes % 17.0 Monocytes % 5.0 Eosinophils % 3.0 Band Neutrophils 1.0 Platelet Estimate Adequate HOSPITAL COURSE: Date of Admission:01/08/17 Date of Discharge: 01/11/17 Minutes to complete discharge: 45 Discharge Summary Reason For Visit: PNUEMONIA/HYPONATREMIA Current Active Problems Hypertension (Acute) Hyponatremia (Acute) Mental retardation (Acute) Pneumonia (Acute) Sepsis (Acute) Condition: Stable - Home Medications Comprehensive Discharge Medication List: Ambulatory Orders Ascorbic Acid [Vitamin C] 1,000 mg PO DAILY 07/17/16 Aspirin [Ecotrin] 81 mg PO DAILY 07/17/16 Cholecalciferol (Vitamin D3) [Vitamin D3 -] 1,000 unit PO DAILY 07/17/16 Lisinopril [Prinivil] 20 mg PO DAILY 07/17/16 Multivitamin,Ther and Minerals [Vitamin and Minerals] 1 each PO DAILY 07/17/16 RX: Amlodipine Besylate 5 mg PO DAILY 07/17/16 RX: Omeprazole 20 mg PO DAILY 07/17/16 Sennosides [Senna] 2 tab PO HS PRN 07/17/16 Prune Juice 4 oz DAILY 01/08/17 Sodium Fluoride [Denta 5000 Plus] 51 gm DT HS 01/08/17 Problem List - Problems (1) Hyponatremia Code(s): E87.1 - HYPO-OSMOLALITY AND HYPONATREMIA (2) Pneumonia Code(s): J18.9 - PNEUMONIA, UNSPECIFIED ORGANISM Qualifiers: Pneumonia type: due to unspecified organism Laterality: left Lung location: lower lobe of lung Qualified Code(s): J18.1 - Lobar pneumonia, unspecified organism (3) Hypertension Code(s): I10 - ESSENTIAL (PRIMARY) HYPERTENSION (4) Sepsis Code(s): A41.9 - SEPSIS, UNSPECIFIED ORGANISM - Discharge Referral Referred to [facility] No
== END 2017-01-11 13:30 | DRG 871 ==
LOC: FER 07:49 → FM/S 11:00
PROVIDERS: ADMIT Internal Medicine; ATTEND Nurse Practitioner Family
DX: A41.9 Sepsis, unspecified organism (principal); J18.9 Pneumonia, unspecified organism; E87.1 Hypo-osmolality and hyponatremia; F73 Profound intellectual disabilities; K57.92 Diverticulitis of intestine, part unspecified, without perforation or abscess without bleeding; I10 Essential (primary) hypertension; K44.9 Diaphragmatic hernia without obstruction or gangrene; I34.1 Nonrheumatic mitral (valve) prolapse; K21.9 Gastro-esophageal reflux disease without esophagitis; E86.0 Dehydration
CPT/HCPCS: 36415; 71010-TC; 71250-TC; 80048; 80053; 81003; 81015; 82570; 83605; 83735; 84100; 84156; 85025; 87040; 87086; 87899; 93005; 93306-TC; 94010; 94640; 97116-GP; 97161-GP; 99285-25

== ENCOUNTER 2017-01-27 09:45 | Emergency (ER) | payer OTHER ==
[2017-01-27 09:56] VITALS: BP 140/93; PULSE 87; TEMP 98; BMI 23.8
--- NOTE | 2017-01-27 10:27 | PDOC ---
*Physical Exam - Vital Signs Last Vital Signs Temp Pulse Resp BP Pulse Ox 98 F 87 18 140/93 99 01/27/17 09:45 01/27/17 09:45 01/27/17 09:45 01/27/17 09:45 01/27/17 09:45 - Physical Exam Comments: 01/27/17 10:31 GENERAL: Awake, alert, and fully oriented, in no acute distress HEAD: 3 cm closed vertical lesion at right sided frontal-zygomatic bone superior to right eyebrow. Lesion is erythematous with no evidence of leakage/ drainage, or active bleeding. Lesion is linear, non-distended, and smooth with regular margins. EYES: PERRLA, EOMI, sclera anicteric, conjunctiva clear ENT: Auricles normal inspection, hearing grossly normal, nares patent, oropharynx clear without exudates. Moist mucosa NECK: Normal ROM, supple, no lymphadenopathy, JVD, or masses LUNGS: No distress, speaks full sentences, clear to auscultation bilaterally HEART: Regular rate and rhythm, normal S1 and S2, no murmurs, rubs or gallops, peripheral pulses normal and equal bilaterally. ABDOMEN: Soft, nontender, normoactive bowel sounds. No guarding, no rebound. No masses EXTREMITIES: Normal inspection, Normal range of motion, no edema. No clubbing or cyanosis. NEUROLOGICAL: Cranial nerves II through XII grossly intact. Normal speech, normal gait, no focal sensorimotor deficits SKIN: Warm, Dry, normal turgor, no rashes or lesions noted. <Clemente Wheat - Last Filed: 01/27/17 11:18> - Vital Signs Last Vital Signs Temp Pulse Resp BP Pulse Ox 98 F 87 18 140/93 99 01/27/17 09:45 01/27/17 09:45 01/27/17 09:45 01/27/17 09:45 01/27/17 09:45 <Gilma Baig - Last Filed: 01/27/17 16:25> ED Treatment Course - Medications Given in the ED: ED Medications Discontinued Medications Generic Name Dose Route Start Last Admin Trade Name Freq PRN Reason Stop Dose Admin Diphtheria/Tetanus/Acell Pertussis 0.5 ml 01/27/17 10:46 01/27/17 10:52 Boostrix - IM 01/27/17 10:47 0.5 ml .ONCE ONE Administration Tetanus Immune Globulin 250 units 01/27/17 10:43 01/27/17 10:53 Hypertet S-D 250 Units Syringe - IM 01/27/17 10:44 Not Given .ONCE ONE <Gilma Baig - Last Filed: 01/27/17 16:25> Progress Note - Progress Note Progress Note: Godfrey Fenton is a 71 yo male with h/o HTN and intellectual disability who presents with right sided forehead laceration. Patient is nonverbal at baseline and lives at long term. Wireless Retail Manager is at bedside to provide report. Godfrey was found this morning in bed with rightsided forehead lesion. Per groundhand he did not have the lesion yesterday evening before going to sleep. This morning the groundhand noted blood in his sink and speculated that he was getting up tot go the bathroom and hit his forehead. She denies any change in his behavior, gait, eating, sleeping, bowel, and urinary habits. She denies h/o falls or trauma to the head, SOB, or physical cues to pain. Denies medication changes. GENERAL/CONSTITUTIONAL: No fever or chills. No weakness. HEAD, EYES, EARS, NOSE AND THROAT: No change in vision. No ear pain or discharge. No sore throat. CARDIOVASCULAR: No chest pain or shortness of breath RESPIRATORY: No cough, wheezing, or hemoptysis. GASTROINTESTINAL: No nausea, vomiting, diarrhea or constipation. GENITOURINARY: No dysuria, frequency, or change in urination. MUSCULOSKELETAL: No joint or muscle swelling or pain. No neck or back pain. SKIN: No rash NEUROLOGIC: No headache, vertigo, loss of consciousness, or change in strength/ sensation. ENDOCRINE: No increased thirst. No abnormal weight change HEMATOLOGIC/LYMPHATIC: No anemia, easy bleeding, or history of blood clots. ALLERGIC/IMMUNOLOGIC: No hives or skin allergy. <Clemente Wheat - Last Filed: 01/27/17 11:18> Medical Decision Making - Medical Decision Making 01/27/17 10:33 Mr. Godfrey Fenton is a 71 yo male who presents with right sided facial laceration of 12 hours duration. Laceration is closed and noted to be 3 cm in vertical direction, with no signs or symptoms of infection or hemorrhage. Minimal disruption of outer layers of skin. Laceration does not warrant suture repair. Patient is hemodynamically stable, and at cognitive and behavioral baseline. 01/27/17 10:44 Tdap ordered <Clemente Wheat - Last Filed: 01/27/17 11:18> - Medical Decision Making 01/27/17 16:19 Patient seen and examined with resident. Agree with above history and physical, assessment and plan. Patient presents to the ED after found with small laceration to the eyebrow. No other signs of trauma. Appears to be at neurologic baseline. No anticoagulant use. Will give tetanus and discharge home. <Gilma aBig - Last Filed: 01/27/17 16:25> *DC/Admit/Observation/Transfer - Discharge Dispostion Admit: No - Attestations Physician Attestion: 01/27/17 11:16 I, Dr. Clemente Wheat, attest that this document has been prepared under my direction and personally reviewed by me in its entirety. I further attest, that it accurately reflects all work, treatment, procedures and medical decision -making performed by me. <Clemente Wheat - Last Filed: 01/27/17 11:18> <Gilma Baig - Last Filed: 01/27/17 16:25> Diagnosis at time of Disposition: Closed head injury, Forehead laceration - Discharge Dispostion Disposition: HOME Condition at time of disposition: Good - Patient Instructions Printed Discharge Instructions: DI for Closed Head Injury Additional Instructions: If pt. experiences nausea, vomitting, headache, or blurry vision return to emergency department. Print Language: TAJIK
[2017-01-27] MEDS ORDERED: TETANUS IMMUNE GLOBULIN 250 UNITS DISP.SYRIN IM ONE (10:43)
[2017-01-27] MEDS ORDERED: DIPHTH,PERTUSS(ACELL),TET 0.5 ML DISP.SYRIN IM ONE (10:46)
== END 2017-01-27 11:23 | disposition home or self-care (01) ==
LOC: FER 09:45
PROC: 3E0234Z Introduction of Serum, Toxoid and Vaccine into Muscle, Percutaneous Approach (ICD-10-PCS; principal; 2017-01-27)
DX: S01.81XA Laceration without foreign body of other part of head, initial encounter (principal); S09.90XA Unspecified injury of head, initial encounter; X58.XXXA Exposure to other specified factors, initial encounter; Y93.9 Activity, unspecified; Y92.238 Other place in hospital as the place of occurrence of the external cause; Y99.9 Unspecified external cause status; F79 Unspecified intellectual disabilities; I10 Essential (primary) hypertension
CPT/HCPCS: 90715; 99283-25